=== PATIENT | male | born 1960 | race Caucasian/White ===

== ENCOUNTER 2016-09-19 17:41 | Emergency (ER) | payer SELFPAY ==
--- NOTE | ~2016-09-19 | ER ---
PATIENT'S NAME: MADDIE DUMONT [facility] AGE: 55 Y [address] ROOM: [place] [address] LOCATION: [facility] ADMIT DATE: 09/19/2016 ER/Outpatient Report DISCHARGE DATE: 09/19/2016 FAMILY PHYSICIAN: Devonte Williamson MD ATTENDING PHYSICIAN: Jenny Turner Admission date and time are documented on the medical record. I saw the patient at 1805 hours when I came on shift. CHIEF COMPLAINT: Right flank pain. HISTORY OF PRESENT ILLNESS: This patient is a 55-year-old male who this morning had onset of right flank pain radiating to his groin. He had associated nausea, lightheadedness, dizziness, and near-syncope. Thought he might be constipated or pulled a muscle in his back. Initially went to his personal physician who gave him an injection of pain medication with resolution of his pain. His personal physician asked him to come to the emergency room for further evaluation for his suspected kidney stone. The patient denies any recent cold, coughs, flus, fever, chills, or sweats. No headache, eyes, ears, nose, throat, neck, or spine pain. No chest pain or shortness of breath. No abdominal pain other than the right groin pain and flank pain. Nausea, but no vomiting or diarrhea. No urinary frequency, urgency, or dysuria. No joint or muscle swelling, redness, or pain. No skin eruptions or rash. No history of neuro changes, psych issues, or endocrine problems. HOME MEDICATIONS: None. ALLERGIES: NONE. SOCIAL HISTORY: Nonsmoker. Occasional intake of alcohol. SIGNIFICANT PAST MEDICAL HISTORY: Negative. OPERATIONS: None. REVIEW OF SYSTEMS: All systems reviewed by me are negative with the exception of those discussed in the history of the present illness. PATIENT'S NAME: MADDIE DUMONT [facility] AGE: 55 Y [address] ROOM: [place] [address] LOCATION: [facility] ADMIT DATE: 09/19/2016 ER/Outpatient Report DISCHARGE DATE: 09/19/2016 FAMILY PHYSICIAN: Devonte Williamson MD ATTENDING PHYSICIAN: Jenny Turner PHYSICAL EXAMINATION: VITAL SIGNS: Temperature 96.9, tympanic, pulse 71, respirations 16, blood pressure 150/76, and O2 sat on room air is 97%. HEAD: Normocephalic. EYES, EARS, NOSE, THROAT: Clear. Mucous membranes moist. NECK AND SPINE: Negative. LUNGS: Clear. No rales, rhonchi, or wheezes. HEART: Regular. Pulses are palpable. No chest wall or ribcage pain to palpation. ABDOMEN: Soft, nontender. Good bowel tones. No organomegaly or abnormal mass palpable. No CVA tenderness. EXTREMITIES: Intact. NEUROVASCULAR: Intact. SKIN: Clear. No skin eruptions or rash. The patient states that after his pain shot with his personal physician he has had no further pain. LABORATORY DATA: CMS was normal except for an elevated glucose 111, elevated creatinine 1.4, low GFR of 52. White count was 11,900, 89 segs, 7 lymphs, 4 monos, hemoglobin is 14.1 with hematocrit 41.8, and platelet count is 255,000. Urine was not obtained. CT scan of the abdomen and pelvis with renal stone protocol showed a distal right 4-mm ureteral stone with partial obstruction. The patient does have bilateral intrarenal stones that are nonobstructing. EMERGENCY DEPARTMENT COURSE: Since the patient does not have any pain, we did not give him any medications here in the emergency department. IMPRESSION: Right flank pain, secondary to a distal 4-mm right ureteral stone with moderate obstruction. PLAN: The patient dismissed home. Observation. Activity as tolerated. Fluids, diet as tolerated. [place] as needed for pain, 10/325, #24, Flomax 0.4 mg once a day, #10, Zofran as needed for nausea, vomiting. Strain urine. Follow up with personal physician in 7-10 days or sooner if needed. If the pain comes back and not resolve, he may need to have cystoscopy with stone extraction. Discussion ensued with the patient concerning my findings and recommendations, he understands. PATIENT'S NAME: MADDIE DUMONT [facility] AGE: 55 Y [address] ROOM: [place], [place] [address] LOCATION: ED ADMIT DATE: 09/19/2016 ER/Outpatient Report DISCHARGE DATE: 09/19/2016 FAMILY PHYSICIAN: Devonte Williamson MD ATTENDING PHYSICIAN: Jenny Turner MD ZAYRA NAIDU/abelino /[id number] d: 09/19/16 2350 t: 09/20/16 0248, OUTPATIENT REPORT
[2016-09-19 18:27] LABS: BASOPHIL % 0.2 %; HEMATOCRIT 41.8 % (37.0-53.0); HEMOGLOBIN 14.1 g/dL (12.0-17.0); IMMATURE GRANULOCYTE % 0.2 %; LYMPHOCYTE # 0.8 K/uL (0.8-4.0); LYMPHOCYTE % 6.6 %; MCH 31.1 pg (27.0-34.0); MCHC 33.7 gm/dL (32.0-36.5); MCV 92.1 fl (83.0-98.0); MONOCYTE # 0.5 K/uL (0.0-1.0); MONOCYTE % 4.1 %; MPV 8.7 fl (9.4-12.4); NEUTROPHIL # (ANC) 10.6 K/uL (1.4-9.0); NEUTROPHIL % 88.9 %; NRBC % 0 /100WBC (0-0.00); PLATELET COUNT 255 K/uL (150-450); RBC 4.54 M/uL (4.00-6.00); RDW-CV 13.5 % (11.9-14.6); WBC 11.9 K/uL (4.0-11.0)
[2016-09-19 18:43] LABS: ANION GAP 15.9 (10.0-19.0); CALCIUM 8.8 mg/dL (8.5-10.5); CREATININE 1.4 mg/dL (0.6-1.3); POTASSIUM 3.9 mMol/L (3.7-5.1); TOTAL BILIRUBIN 0.5 mg/dL (0.0-1.5); TOTAL PROTEIN 7.6 g/dL (6.0-8.4)
== END 2016-09-19 19:18 | disposition disaster alternative care site (69) ==
LOC: GMED 17:41
PROVIDERS: Emergency Medicine
DX: N13.2 Hydronephrosis with renal and ureteral calculous obstruction (principal)